=== PATIENT | female | born 1990 | race Caucasian/White ===

== ENCOUNTER 2020-09-20 17:00 | Emergency (ER) | payer OTHER ==
[~2020-09-20] VITALS: Ht 162.6 cm; Wt 80.4 kg
[2020-09-20 17:01] VITALS: BP 137/81
[2020-09-20] MEDS ORDERED: LIDOCAINE 2% MDV 20ML VIAL SC ONE (17:30)
== END 2020-09-20 17:59 | disposition home or self-care (01) ==
LOC: M ED 17:00
DX: S61.411A Laceration without foreign body of right hand, initial encounter (principal); W25.XXXA Contact with sharp glass, initial encounter; Y92.9 Unspecified place or not applicable; Y93.9 Activity, unspecified; Y99.9 Unspecified external cause status

== ENCOUNTER 2021-04-05 09:29 | Outpatient (CLI) | payer OTHER ==
[~2021-04-05] VITALS: Ht 162.6 cm; Wt 91.8 kg
[2021-04-05 09:53] VITALS: BP 153/100
[2021-04-05] MEDS ORDERED: PRENTAB9 PO (10:05)
[2021-04-05 10:13] VITALS: BP 161/90
[2021-04-05 10:24] VITALS: BP 153/85
[2021-04-05 10:36] LABS: HEMOGLOBIN 12.3 g/dl (12.0-15.5); MEAN CORPUSCULAR HEMOGLOBIN 29.6 pg (27.0-33.0); MEAN CORPUSCULAR HGB CONC 34.2 g/dl (32.0-36.5); MEAN CORPUSCULAR VOLUME 86.5 fl (80.0-96.0); PLATELET COUNT, AUTOMATED 191 10^3/uL (150-450); RED BLOOD COUNT 4.16 10^6/uL (4.00-5.40); WHITE BLOOD COUNT 11.8 10^3/uL (4.0-10.0)
[2021-04-05 10:39] VITALS: BP 151/85
[2021-04-05 10:44] LABS: TOTAL PROTEIN,RANDOM URINE 6.9 MG/DL (0.0-12.0)
[2021-04-05 10:55] VITALS: BP 122/84
[2021-04-05 10:59] LABS: ALBUMIN 2.4 GM/DL (3.2-5.2); ALT/SGPT 21 U/L (12-78); BILIRUBIN,TOTAL 0.2 MG/DL (0.2-1.0); BLOOD UREA NITROGEN 4 MG/DL (7-18); CALCIUM LEVEL 8.4 MG/DL (8.5-10.1); CARBON DIOXIDE LEVEL 20 MEQ/L (21-32); CHLORIDE LEVEL 113 MEQ/L (98-107); CREATININE FOR GFR 0.61 MG/DL (0.55-1.30); GLOMERULAR FILTRATION RATE > 60.0 (>60); GLUCOSE, FASTING 79 MG/DL (70-100); SODIUM LEVEL 141 MEQ/L (136-145); TOTAL PROTEIN 5.3 GM/DL (6.4-8.2)
--- NOTE | 2021-04-05 14:38 | IPNPDOC ---
Obstetrical Progress Note Date of Service Apr 05, 2021 Subjective 30yo at 31w6d presents to triage with increased swelling and noted elevated BP on cuff at [facility]. She states she has noticed more swelling in her hands and was concerned so decided to go to [facility] to check her BP. She reports initial read was in the 130's/80's and repeat was 140's/100's. Her has been uncomplicated to date. She reports intermittent headaches that self resolve, and denies headache at this time. Denies vision changes, RUQ pain, N/V or dyspnea. She is also without OB complaint and denies ctx ,LOF, VB or discharge. +GFM Objective Vital Signs Date Time Temp Pulse Resp B/P (MAP) Pulse Ox O2 Delivery O2 Flow Rate FiO2 04/05/21 10:55 50 122/84 (97) 04/05/21 10:39 51 151/85 (107) 04/05/21 10:24 64 153/85 (107) 04/05/21 10:13 58 161/90 (113) 04/05/21 09:53 98.3 65 18 153/100 (117) Laboratory Tests 04/05/21 10:11: Urine Random Creatinine 45.0, Urine Random Total Protein 6.9 04/05/21 10:28: White Blood Count 11.8H, Red Blood Count 4.16, Hemoglobin 12.3, Hematocrit 36.0, Mean Corpuscular Volume 86.5, Mean Corpuscular Hemoglobin 29.6, Mean Corpuscular Hemoglobin Concent 34.2, Red Cell Distribution Width 12.8, Platelet Count 191, Nucleated Red Blood Cells % (auto) 0.0, Sodium Level 141, Potassium Level 4.0, Chloride Level 113H, Carbon Dioxide Level 20L, Anion Gap 8, Blood Urea Nitrogen 4L, Creatinine 0.61, Glomerular Filtration Rate > 60.0, Fasting Glucose 79, Calcium Level 8.4L, Total Bilirubin 0.2, Aspartate Amino Transf (AST/SGOT) 13, Alanine Aminotransferase (ALT/SGPT) 21, Alkaline Phosphatase 86, Total Protein 5.3L, Albumin 2.4L, Albumin/Globulin Ratio 0.8L Assessment Heart Rate (FHR): 140 Variability: Moderate Accelerations: Positive Decelerations: None Tocometer Contractions: No Assessment and Plan Additional Comments BP in triage in the 150's/100's initially, pt somewhat anxious on arrival. Pre E labs obtained and within normal limits, UPC calculated at 0.15. BP improved to 122/84 after patient rested, and she remained asymptomatic. Discussed lab findings and recommend collection of 24hr urine that she may complete at home, with strict return precautions given. Order placed for patient to drop off urine at [place]. All questions answered. Has follow up scheduled for Wednesday for KIRAN care. TONY MORRIS M.D. Apr 05, 2021 12:27
== END 2021-04-05 11:20 | disposition home or self-care (01) ==
LOC: M LDO 09:29
PROVIDERS: ATTEND Obstetrics & Gynecology
DX: O26.893 Other specified pregnancy related conditions, third trimester (principal); R03.0 Elevated blood-pressure reading, without diagnosis of hypertension; Z3A.31 31 weeks gestation of pregnancy
CPT/HCPCS: 36415; 59025; 80053; 82570; 84156; 85027; G0378; G0463

== ENCOUNTER → 2021-04-21 | Outpatient (CLI) | payer OTHER ==
[~2021-04-21] MED LIST: PRENTAB9 PO
--- NOTE | 2021-04-22 08:14 | REP ---
INDICATION: GEST HTN COMPARISON: None. TECHNIQUE: Transabdominal obstetrical ultrasound with color Doppler evaluation. FINDINGS: Examination demonstrates a single live intrauterine in cephalic presentation. motion is identified by technologist. Placenta is noted anterior and grade 1 without evidence for placenta previa or abruption. Amniotic fluid volume is normal. Cervix measures 3.1 cm in length and appears closed.. Selected gestational age: 34 weeks 1 day with JONH 06/01/2021. Gestational age by current measurements 35 weeks 2 days with JONH 05/24/2021. FHR equals 153 beats per minute. BPD: 8.6 cm at 34 weeks 4 days HC: 31.4 cm at 35 weeks 2 days AC: 32.9 cm at 36 weeks 6 days FL: 6.8 cm at 34 weeks 6 days HL: 6.0 cm at 34 weeks 5 days HC/AC: 0.95 Estimated weight 2797 grams (90thpercentile). EVAN: 11.0 cm (8.1-24.8) Umbilical artery SD ratio: 2.16 (1.73-3.67) Limited anatomical assessment demonstrates no obvious abnormality. IMPRESSION: Single live advanced gestation in cephalic presentation. Amniotic fluid volume is within normal limits. Estimated weight upper limits of normal range. <Electronically signed by Robert Armando > 04/22/21 [id number]
== END ==
LOC: M RAD 13:57
PROVIDERS: ATTEND Advanced Practice Midwife
DX: O13.3 Gestational [pregnancy-induced] hypertension without significant proteinuria, third trimester (principal); Z3A.35 35 weeks gestation of pregnancy

== ENCOUNTER → 2021-04-29 | Outpatient (CLI) | payer OTHER ==
[2021-04-29 12:47] LABS: HEMATOCRIT 38.9 % (36.0-47.0); HEMOGLOBIN 13.2 g/dl (12.0-15.5); MEAN CORPUSCULAR HGB CONC 33.9 g/dl (32.0-36.5); MEAN CORPUSCULAR VOLUME 88.4 fl (80.0-96.0); PLATELET COUNT, AUTOMATED 173 10^3/uL (150-450)
[2021-04-29 13:11] LABS: TOTAL PROTEIN,RANDOM URINE 21.1 MG/DL (0.0-12.0)
[2021-04-29 13:12] LABS: ALBUMIN 2.6 GM/DL (3.2-5.2); ALT/SGPT 25 U/L (12-78); BILIRUBIN,DIRECT < 0.1 MG/DL (0.0-0.2); BILIRUBIN,TOTAL 0.3 MG/DL (0.2-1.0); BLOOD UREA NITROGEN 6 MG/DL (7-18); CARBON DIOXIDE LEVEL 23 MEQ/L (21-32); CHLORIDE LEVEL 107 MEQ/L (98-107); GLOMERULAR FILTRATION RATE > 60.0 (>60); GLUCOSE, FASTING 70 MG/DL (70-100); LDH LACTATE DEHYDROGENASE 159 U/L (84-246); POTASSIUM SERUM 4.7 MEQ/L (3.5-5.1); SODIUM LEVEL 138 MEQ/L (136-145); TOTAL PROTEIN 5.7 GM/DL (6.4-8.2); URIC ACID 3.5 MG/DL (2.6-6.0)
== END ==
LOC: M LAB 11:40
PROVIDERS: ATTEND Obstetrics & Gynecology
DX: O13.3 Gestational [pregnancy-induced] hypertension without significant proteinuria, third trimester (principal)

== ENCOUNTER 2021-05-09 13:38 | Inpatient (IN) | payer OTHER ==
[~2021-05-09] VITALS: Ht 162.6 cm; Wt 92.2 kg
[2021-05-09] VITALS (25 sets, daily range): BP systolic 126–183; BP diastolic 67–116
[2021-05-09] MEDS ORDERED: PENICILLIN G POTASSIUM IV 5 MU in D5W MINI-BAG PLUS 100 ML IV STA (13:46)
[2021-05-09] MEDS ORDERED: TRANEXAMIC ACID INJection 1,000 MG in NS 100 ML IV PRN (13:50)
[2021-05-09] MEDS ORDERED: CALCIUM GLUCONATE 1,000 MG in D5W MINI-BAG PLUS 100 ML IV PRN (13:50)
[2021-05-09] MEDS ORDERED: CARBOPROST TROMETHAMINE 250 MCG/ML AMP IM PRN (13:50)
[2021-05-09] MEDS ORDERED: OXYTOCIN DRIP 30 UNITS in IV 1 EA IV PRN ×4 (13:50)
[2021-05-09] MEDS ORDERED: MAG Sulf (L&D) 4 GM/100 ML 4 GM in IV 1 EA IV ONE (13:50)
[2021-05-09] MEDS ORDERED: HOME MED LIST COMPLETE! XX SCH (14:00)
[2021-05-09] MEDS ORDERED: miSOPROStol 50MCG 1/2 TABLET SL ONE (14:25)
--- NOTE | 2021-05-09 14:44 | HPEPDOC ---
Obstetrical History & Physical General Date of Admission May 09, 2021 at 13:38 History of Present Illness Chief Complaint: Patient is a 31yo at 36+5 wks gestation who presents to L&D triage for IOL due to neurological symptoms in setting of [place]. HPI: Reports vision changes going from just spots to fireworks in vision. Feeling head pressure, not necessarily pain. Denies nausea, vomiting, abdominal pain, contractions, LOF, vaginal bleeding. Reports movement, just less than before. D Denies any dysuria, vaginal discharge, vaginal itching/burning. ROS: GEN: Feeling Fine. Denies fevers. Head: Denies facial pain, or sinus pressure. Resp: Denies SOB/LAMBERT, cough, or wheezing. Card: Denies palpitations or Chest pain. GI: Denies nausea, vomiting, diarrhea, constipation. No abdominal pain. MSK: Denies calf pain. Denies low back pain. Lymph: Denies edema to upper or lower extremities bilaterally. Neuro: Denies changes in sensation or motor function. Skin: Denies any skin changes, lesions, lacerations, ecchymosis, pruritus, or rashes. ALLERGIES: No allergic/immunologic symptoms. NKDA- Reviewed Dating Final EDC: Jun 01, 2021 Final EDC by: LMP LMP: Aug 25, 2020 Estimated Date of Confinement: Jun 01, 2021 EGA at Admission: 36.5 Antepartum Course Diagnos(e)s 1.Gestational Hypertension 2. Varicella Non-Immune 3. Overweight, BMI 29.35 Height (inches): 64 Pre- weight (lbs.): 171 Admission Weight (lbs.): 207 Change in Weight (lbs.): 36 Past Medical History Past Obstetrical History : Past Obstetrical History: [employer] History: No pertinent history Past Medical History Medical History Denies Surgical History: Tonsilectomy, [place] teeth Family History Significant Family History: No pertinent family hx Social History Marital Status: Psychosocial History: No pertinent psych hx * Smoker: non-smoker Alcohol: Denies Drugs: denies Abuse Violence Screening Have you been hit/kicked/slapp: No Have you been sexually assault: No Allergies Coded Allergies: No Known Allergies (Unverified , 09/20/20) Medications Scheduled No.137/Iron/Folic Acd ( Vitamin Tablet) 1 Each Tablet, 1 TAB PO DAILY Physical Examination Physical Examination Exam: General: Well-appearing, in no acute distress. Uncomfortable with contractions. PSYCH: Well groomed. Appropriate affect, normal mood. Conversed easily. Neuro: Oriented to time, place, and person. Patellar Deep tendon reflexes 2+. Negative clonus. RESP: Lungs clear to auscultation bilaterally without wheezes, rales or rh onchi. Unlabored breathing. CV: Normal RRR, no murmur, c/w normal . No edema to bilateral upper and lower extremities. Negative calf tenderness. Back: No tenderness on palpation. ABD: Gravid. Soft, non-tender. BS normal x4 quad. Uterus non-tender. MSK: Normal mvmt all extremities. Steady gait. Betsy from a seated position without assistance. SKIN: Dry, intact. Genitalia: External Genitalia showed no abnormalities, without lesions; normal vulva with NO vulvar atrophy, hypertrophy, stricture, adhesions, ulcers, lesions, masses. No vaginal discharge was observed. No unusual odors. Perianal area intact without lesions or visible hemorrhoids. No skin tag noted. Obstetrical: Clinical Pelvimetry: Pelvis adequate, untested. FHR: 145 rate, moderate variability, accelerations present, no decelerations. Contractions absent, but uterine irritability noted. VTX by Rosemarie EFW: 2800gm by Rosemarie SVE: FT/thick/high, posterior/firm Associate Professor Of Forestry present for exam: Ms. RiveraRenetta&D Rn Vital Signs/I&O 13:56: 157/91, P74 14:32: 139/91, P68 Laboratory Data 24H LABS Laboratory Tests 2 05/09/21 13:52: Serology Scanned Report Hepatitis B Testing Urine Culture: No Growth Pertinent Laboratoy Data Blood Type: O+ RBC Antibody Screen: Negative HIV: Negative Hepatitis B: Negative Rapid Plasma Reagin: Nonreactive Rubella: Immune Varicella: Nonreactive Chlamydia/Gonorrhea: Negative Group B Streptococcus: Negative Quad Screen Test: Declined Cystic Fibrosis: Negative Glucose Tolerance Test: 161 (with normal 3hr GTT) Anatomy Ultrasound Ultrasound Date: Jan 08, 2021 Placenta Location: Anterior Normal Anatomy: Yes (with limited views) Other Ultrasounds 03/12/21 f/u: EGA 283. EFW 1362gm (68%). Normal anatomy. Assessment/Plan Assessment 31yo at 36+5 wks gestation presents to L&D for IOL after being evaluated in clinic and found to have vision changes in setting of GHTN. Due to symptoms, now with pre-e with severe features. O positive/RI Varicella Non-immune GBS unknown Mild range BP Benign physical exam FHR Cat 1 tracing VTX by Rosemarie EFW: 2800gm [place] SVE: FT/thick/high, post/firm Plan Admit, labs, IV including pre-e labs, consent completed Address pain needs as the arise Continuous EFM, NPO Start mag for seizure prophylaxis, 4gm bolus followed by 2gm per hour. Dr. Seth previously consulted regarding patient. GBS positive: start prophylaxis when in active labor due to GBS unknown, status. Plan to start IOL process with cytotec buccal 50mcg now. Discussed aguilar bulb placement when able. Anticipate Labor and Delivery Counseling Reviewed with patient the following with the patient in regards to vaginal delivery (Deliver through the vaginal canal): The purpose of the procedure is to deliver a baby. There may be maternal risks involved with vaginal delivery to include but not limited to: -Use of the medications to induce or augment labor with the risks of uterine rupture, infection, heart rate abnormalities, hemorrhage, and/or need for emergency delivery. -Artificial rupture of the amniotic sac with the risk of cord prolapse -Internal monitors with the associate risks of infection or fever -Infection, which is fever during the labor process -IV pain management, anesthesia as indicated and associated risks with those med ications -Vaginal lacerations and repair, episiotomy and repair when needed -Injury to the baby or mother at the time of delivery, -Maternal organ damage, maternal or infant -Prolonged hospitalized -Possible painful intercourse, chronic pelvic pain In addition to these maternal risks, there may be other possible risks involved in this procedure including, but not limited to: bleeding with the possible need for blood transfusion. Risks of blood transfusion can include but are not limited to: possible transfusion reaction, virus transmission. Patient consents to blood transfusion if necessary. The likelihood of a successful outcome for this procedure is: Good Reviewed with patient the generally recognized and accepted practical alternatives to this procedure and the accompanying risks are: -Possible emergent Section with its risk of damage to internal organs and necessary repairs, laceration to the baby and necessary repairs -Possible operative vaginal delivery to include forceps or vacuum assist, resulting in: maternal tissue damage, maternal urinary or bowel incontinence, baby bruising, hematoma, scalp swelling, scalp laceration, skull fracture, facial paralysis and its repair Reviewed with patient the practice of medicine is not an exact science and that no guarantees can be made to the patient concerning the results of this procedure, nor guarantees to the effect this procedure will have on underlying medical issues. Reviewed with patient that during the course of labor, it may be necessary or appropriate to perform additional procedure(s) which were unforeseen or not known to be needed at the time of admission. Ms. Lawton appears to understand these risks and elects to proceed with induction of labor today. KEISHA LERMA CNM May 09, 2021 14:07
[2021-05-09] MEDS: LR 1,000 ML IV SCH (14:55)
[2021-05-09] MEDS: MAG Sulf (OBGYN) 20GM/500ML 20,000 MG in IV 1 EA IV SCH ×2 (15:02→23:27)
[2021-05-09 15:03] LABS: HEMATOCRIT 36.5 % (36.0-47.0); HEMOGLOBIN 12.7 g/dl (12.0-15.5); MEAN CORPUSCULAR HGB CONC 34.8 g/dl (32.0-36.5); MEAN CORPUSCULAR VOLUME 86.1 fl (80.0-96.0); PLATELET COUNT, AUTOMATED 172 10^3/uL (150-450); RED BLOOD COUNT 4.24 10^6/uL (4.00-5.40); WHITE BLOOD COUNT 12.1 10^3/uL (4.0-10.0)
[2021-05-09 15:25] LABS: ALT/SGPT 24 U/L (12-78); BILIRUBIN,TOTAL 0.3 MG/DL (0.2-1.0); CREATININE FOR GFR 0.85 MG/DL (0.55-1.30); GLOMERULAR FILTRATION RATE > 60.0 (>60); LDH LACTATE DEHYDROGENASE 168 U/L (84-246); URIC ACID 3.9 MG/DL (2.6-6.0)
[2021-05-09 15:49] LABS: CREATININE,RANDOM URINE < 13.0 MG/DL; TOTAL PROTEIN,RANDOM URINE 7.9 MG/DL (0.0-12.0)
[2021-05-09] MEDS ORDERED: miSOPROStol 25MCG 1/4 TABLET PO SCH (19:15)
[2021-05-09] MEDS ORDERED: **PENDING PCN ENTRY XX SCH (21:00)
[2021-05-09] MEDS ORDERED: ACETAMINOPHEN 500 MG TAB PO ONE (22:00)
--- NOTE | 2021-05-09 23:12 | IPNPDOC ---
Obstetrical Progress Note Date of Service May 09, 2021 Subjective to room for assessment. patient's vision changes symptoms are better and headache is also better. she has received 2 doses of cytotec 50mcg, then 25mcg FHT: 140, MOD JMI,+ACCELS, -Decels---cat I tracing SVE: //H. cook cathater placed with 80/[address] toco: 2-310 A/P Latent labor. cat I tracing. normal BP AND no s/s of worsenng pre e or mag toxicity. can redose cytotec at this time. anticipate Objective Vital Signs Date Time Temp Pulse Resp B/P (MAP) Pulse Ox O2 Delivery O2 Flow Rate FiO2 05/09/21 21:43 97.7 94 18 134/74 (94) ELLA MORALES MD May 09, 2021 23:12
[2021-05-10] VITALS (88 sets, daily range): BP systolic 95–179; BP diastolic 50–108
[2021-05-10] MEDS ORDERED: BUTORPHANOL 2 MG/ML INJ (J0595) IV ONE (00:35)
[2021-05-10] MEDS ORDERED: miSOPROStol 25MCG 1/4 TABLET PO ONE ×2 (02:25→07:10)
[2021-05-10] MEDS: LR 1,000 ML IV SCH ×2 (04:21→09:45)
[2021-05-10 07:45] LABS: ALBUMIN 2.5 GM/DL (3.2-5.2); ALT/SGPT 22 U/L (12-78); BILIRUBIN,TOTAL 0.3 MG/DL (0.2-1.0); BLOOD UREA NITROGEN 7 MG/DL (7-18); CALCIUM LEVEL 7.3 MG/DL (8.5-10.1); CARBON DIOXIDE LEVEL 21 MEQ/L (21-32); CHLORIDE LEVEL 104 MEQ/L (98-107); CREATININE FOR GFR 0.65 MG/DL (0.55-1.30); GLOMERULAR FILTRATION RATE > 60.0 (>60); GLUCOSE, FASTING 87 MG/DL (70-100); SODIUM LEVEL 135 MEQ/L (136-145); TOTAL PROTEIN 5.9 GM/DL (6.4-8.2)
[2021-05-10] MEDS: MAG Sulf (OBGYN) 20GM/500ML 20,000 MG in IV 1 EA IV SCH ×2 (09:41→19:35)
--- NOTE | 2021-05-10 10:22 | IPNPDOC ---
Obstetrical Progress Note Date of Service May 10, 2021 Subjective Patient uncomfortable when contractions do occur. Pt reports still some intermittent headache, had tylenol last night that helped with pain. Vision changes have improved. Wanting something to eat, hasn't eaten since yesterday. Spouse at BS for support. Objective Vital Signs Date Time Temp Pulse Resp B/P (MAP) Pulse Ox O2 Delivery O2 Flow Rate FiO2 05/10/21 10:01 05/10/21 09:05 88 96 18 140/62 134/78 (96) Room Air 05/10/21 07:52 98.0 Item Value Date Time Creatinine 0.65 MG/DL 05/10/21 0708 Glomerular Filtration Rate > 60.0 05/10/21 0708 Blood Urea Nitrogen 7 MG/DL 05/10/21 0708 Aspartate Amino Transf (AST/SGOT) 14 U/L 05/10/21 0708 Alanine Aminotransferase (ALT/SGPT) 22 U/L 05/10/21 0708 Sodium Level 135 MEQ/L L 05/10/21 0708 Potassium Level 4.0 MEQ/L 05/10/21 0708 Chloride Level 104 MEQ/L 05/10/21 0708 Carbon Dioxide Level 21 MEQ/L 05/10/21 0708 Anion Gap 10 MEQ/L 05/10/21 0708 Assessment Heart Rate (FHR): 135 Variability: Moderate Accelerations: Positive Decelerations: None Heart Rate Tracing: Category I Tocometer Contractions: Yes Frequency: every 3-7 min. Assessment and Plan Additional Comments 31yo at 36+6 wks gestation: admitted yesterday for IOL for Pre-E with severe features (based on neurological symptoms). O positive/RI Varicella Non-immune- plan vaccine PP GBS unknown- plan to start when in active labor Continues to have Mild range BP. Did have severe range early this am, but resolved spontaneously. Continue on Mag sulfate 2gm/hr for seizure prophylaxis. Pt reports still some intermittent headache, declines tylenol at this time. Vision changes have improved. Lungs CTA bilaterally. FHR Cat 1 tracing Admission labs normal. CMP today normal (did have some decreased urine output this am at 0400). May have clear liquid diet for breakfast and lunch. IOL was started with cytotec. Has received 60-62-91-25mcg with last dose at 0751. Double lumen aguilar bulb was placed at 2302 last night wtih 80/80. External balloon was decreased to 40ml after decreased urine output at 0400 this am. Improved urine output since deflation. Aguilar balloon remains in place. Plan to continue cytotec until aguilar out, then start pitocin. May have IV analgesia for pain if desired and tylenol for headache. Continuous EFM, NPO Anticipate KEISHA LERMA CNM May 10, 2021 10:22
[2021-05-10] MEDS ORDERED: miSOPROStol 50MCG 1/2 TABLET SL ONE (12:05)
[2021-05-10] MEDS ORDERED: LABETALOL 100MG/20ML VIAL As Ordered ONE (13:33)
[2021-05-10] MEDS: LABETALOL 100MG/20ML VIAL IV SCH ×2 (13:54→14:27)
--- NOTE | 2021-05-10 14:26 | IPNPDOC ---
Obstetrical Progress Note Date of Service May 10, 2021 Subjective Feeling some chest pressure, some shortness of breath. Has headache. States aguilar cath is very uncomfortable. Spouse at bedside. Objective Vital Signs Date Time Temp Pulse Resp B/P (MAP) Pulse Ox O2 Delivery O2 Flow Rate FiO2 05/10/21 13:39 05/10/21 13:29 05/10/21 13:17 98 98 96 141/95 *179/97 *164/105 05/10/21 13:00 05/10/21 12:16 100 113 18 153/95 147/99 05/10/21 11:30 98.4 91 18 139/80 Room Air Assessment Heart Rate (FHR): 135 Variability: Moderate Accelerations: Positive Decelerations: None Heart Rate Tracing: Category I Tocometer Frequency: every 3-7 min. Assessment and Plan Additional Comments 31yo at 36+6 wks gestation: admitted yesterday for IOL for Pre-E with severe features (based on neurological symptoms). O positive/RI Varicella Non-immune- plan vaccine PP GBS unknown- plan to start now FHR Cat 1 tracing Admission LFT normal with P:C 0.6. Early CMP normal. Had severe range BP x2. Labetalol IV 20mg given at 1338 with repeat BP back to mild elevations of BP. At time of writing this note, 2 additional severe range blood pressures noted. Additional labetalol IV40mg IV ordered. Continue on Mag sulfate 2gm/hr for seizure prophylaxis. Plan mag level now due to difficulty breathing. No clonus and 2+ patellar reflexes. Lungs are CTA bilaterally. May have epidural if desired. CBC now so anesthesia to view platelet level. IV tylenol now for GARCÍA. IOL was started with cytotec. Has received 69-20-05-25-50mcg with last dose at 1220. Double lumen aguilar bulb was placed at 2302 last night with 80/80. External balloon was decreased to 40ml after decreased urine output at 0400 this am. Improved urine output since deflation. Aguilar balloon removed with gentle tug at 1405. Plan to start pitocin 4hrs a fter last dose of cytotec. SVE: 5-6/75/-3 with bulging bag. Aguilar balloon was likely preventing head decent. AROM when able. Back to NPO diet. Continuous EFM, NPO Anticipate KEISHA LERMA CNM May 10, 2021 14:20
[2021-05-10] MEDS ORDERED: PENICILLIN G POTASSIUM IV 5 MU in D5W MINI-BAG PLUS 100 ML IV STA (14:34)
[2021-05-10] MEDS ORDERED: ACETAMINOPHEN *IV* 1,000 MG in IV 1 EA IV ONE (15:00)
[2021-05-10 15:05] LABS: HEMATOCRIT 34.6 % (36.0-47.0); HEMOGLOBIN 12.1 g/dl (12.0-15.5); MEAN CORPUSCULAR VOLUME 85.6 fl (80.0-96.0); PLATELET COUNT, AUTOMATED 190 10^3/uL (150-450); RED BLOOD COUNT 4.04 10^6/uL (4.00-5.40); WHITE BLOOD COUNT 14.4 10^3/uL (4.0-10.0)
[2021-05-10] MEDS ORDERED: OXYTOCIN DRIP 30 UNITS in IV 1 EA IV SCH (16:00)
[2021-05-10] MEDS: PENICILLIN G POTASSIUM IV 2.5 MU in IV 1 EA IV SCH ×2 (19:07→23:11)
--- NOTE | 2021-05-10 19:23 | IPNPDOC ---
Obstetrical Progress Note Date of Service May 10, 2021 Subjective Feeling much improved. Headache gone. Spouse at bedside. Objective Vital Signs Date Time Temp Pulse Resp B/P (MAP) Pulse Ox O2 Delivery O2 Flow Rate FiO2 05/10/21 19:00 82 121/64 (83) Room Air 05/10/21 18:44 18 05/10/21 16:14 98.5 05/10/21 15:59 95 Assessment Heart Rate (FHR): 135 Variability: Moderate Accelerations: Positive Decelerations: None Heart Rate Tracing: Category I Tocometer Contractions: Yes Frequency: every 2-5 min. Assessment and Plan Additional Comments 31yo at 36+6 wks gestation: admitted yesterday for IOL for Pre-E with severe features (based on neurological symptoms). O positive/RI Varicella Non-immune- plan vaccine PP GBS unknown- Just started 2nd dose of PCN, continue until delivery. FHR Cat 1 tracing Admission LFT normal with P:C 0.6. Early CMP normal. Repeat CBC this afternoon (For anesthesia prior to epidural placement) was normal. Mag level is therapeutic. Had severe range BP x4 earlier this afternoon. Received total 60mg IV labetalol, last received at 1427. Normotensive since that time. Continue on Mag sulfate 2gm/hr for seizure prophylaxis. Normal urine output today. May have epidural if desired. IOL was started with cytotec. Has received 22-38-13-25-50mcg with last dose at 1220. Double lumen aguilar bulb out at 1405. Pitocin was started at 1620 and currently at 8mu/min. SVE: 5-6/75/-2. same dilation as last check with some decent. AROM at 1913 with minimal clear fluid. Continue induction with pitocin titration per protocol. NPO diet. Continuous EFM, NPO Anticipate KEISHA LERMA CNM May 10, 2021 19:22
[2021-05-10] MEDS ORDERED: FENTANYL 2MCG/ML ROPIVACAINE 0.2% IN 0.9% NACL 100ML IVBAG As Ordered ONE (20:39)
[2021-05-10] MEDS ORDERED: NALOXONE INJ 0.4MG/1ML VIAL (J2310 PER 1MG) IV PRN (21:04)
[2021-05-10] MEDS ORDERED: ePHEDrine SULFATE 25 MG/5 ML(5MG/ML) SYRINGE IV PRN (21:04)
[2021-05-10] MEDS ORDERED: REFRIGERATOR IV KEYS XX PRN (21:04)
[2021-05-10] MEDS ORDERED: EPIDURAL/PCA KEYS XX PRN (21:04)
[2021-05-10] MEDS ORDERED: ONDANSETRON 4MG/2ML VIAL IV PRN (21:04)
[2021-05-10] MEDS ORDERED: FENTANYL/ROPIVACAINE/NACL BAG 100 ML EPIDURAL SCH (21:04)
[2021-05-10] MEDS ORDERED: LACTATED RINGER'S 1000 ML IV PRN (21:04)
[2021-05-10] MEDS ORDERED: EPIDURAL COMMENT XX SCH (21:04)
[2021-05-10] MEDS ORDERED: diphenhydrAMINE 50MG/ML VIAL (J1200) IV PRN (21:04)
[2021-05-10] MEDS ORDERED: ePHEDrine SULFATE 25 MG/5 ML(5MG/ML) SYRINGE As Ordered ONE (21:34)
--- NOTE | 2021-05-10 22:11 | IPNPDOC ---
Obstetrical Progress Note Date of Service May 10, 2021 Subjective Now comfortable with Epidural. Objective Vital Signs Date Time Temp Pulse Resp B/P (MAP) Pulse Ox O2 Delivery O2 Flow Rate FiO2 05/10/21 21:56 05/10/21 21:42 94 87 125/74 (91) 130/75 05/10/21 19:16 98.0 05/10/21 19:00 Room Air 05/10/21 18:44 18 05/10/21 15:59 95 Assessment Heart Rate (FHR): 155 Variability: Minimal Accelerations: None Decelerations: Early, Late, Variable Heart Rate Tracing: Category II Tocometer Contractions: Yes Frequency: every 2-5 min. Assessment and Plan Additional Comments 31yo at 36+6 wks gestation: admitted yesterday for IOL for Pre-E with severe features (based on neurological symptoms). O positive/RI Varicella Non-immune- plan vaccine PP GBS unknown- Completed 2 doses PCN, continue until delivery. FHR Cat 2 tracing: Late decelerations noted after epidural placement. Resolved after position changes, ephedrine doses (due to drop in BP), and decreasing pitocin in half to 7mu/min. FHR now with min-mod variability, no acceleration and very subtle early decelerations noted. Had severe range BP x4 earlier this afternoon. Received total 60mg IV labetalol, last received at 1427. Stable BP at this time. No headache since receiving ofrimev this afternoon. Continue on Mag sulfate 2gm/hr for seizure prophylaxis. Normal urine output today. Admission LFT normal with P:C 0.6. Early CMP normal. Repeat CBC this afternoon (For anesthesia prior to epidural placement) was normal. Mag level is therapeutic. IOL was started with cytotec. Received 44-76-78-25-50mcg with last dose at 1220. Double lumen aguilar bulb out at 1405. Pitocin was started at 1620 and currently at 7mu/min (recently decreased due to FHR). AROM was at 1913 with minimal clear fluid. Continue induction with pitocin titration per protocol. NPO diet. Continuous EFM, NPO Anticipate KEISHA LERMA CNM May 10, 2021 22:10
--- NOTE | 2021-05-10 23:38 | IPNPDOC ---
Obstetrical Progress Note Date of Service May 10, 2021 Subjective Sleeping, comfortable with BATOOL. No headache. Spouse at bedside. Denies any issues with breathing. Objective Vital Signs Date Time Temp Pulse Resp B/P (MAP) Pulse Ox O2 Delivery O2 Flow Rate FiO2 05/10/21 23:26 05/10/21 21:56 93 94 118/56 125/74 (91) 05/10/21 21:30 97.8 05/10/21 19:00 Room Air 05/10/21 18:44 18 05/10/21 15:59 95 Assessment Heart Rate (FHR): 150 Variability: Moderate Accelerations: Positive (with scalp stim during SVE) Decelerations: Early Heart Rate Tracing: Category I Tocometer Frequency: every 2-5 min. Strength: palpated as mild Assessment and Plan Additional Comments 31yo at 36+6 wks gestation: admitted yesterday for IOL for Pre-E with severe features (based on neurological symptoms). O positive/RI Varicella Non-immune- plan vaccine PP GBS unknown- Completed 2 doses PCN, continue until delivery. FHR Cat 1tracing: late decels have resolved. Now with early decelerations. Positive acceleration with scalp stimulation. Had severe range BP x4 earlier this afternoon. Received total 60mg IV labetalol, last received at 1427. Stable BP at this time. No headache since receiving ofrimev this afternoon. Continue on Mag sulfate 2gm/hr for seizure prophylaxis. Normal urine output today. Admission LFT normal with P:C 0.6. Early CMP normal. Repeat CBC this afternoon (For anesthesia prior to epidural placement) was normal. Mag level was therapeutic this afternoon. IOL was started with cytotec. Received 22-11-10-25-50mcg with last dose at 1220. Double lumen aguilar bulb out at 1405. Pitocin was started at 1620 and currently at 7mu/min (recently decreased due to FHR). AROM was at 1913 with minimal clear fluid. SVE now solid 6cm, 90%, -2. 0.5cm caput noted. MICHAEL based on exam. Continue induction with pitocin titration per protocol. NPO diet. Continuous EFM, NPO Anticipate KEISHA LERMA CNM May 10, 2021 23:38
[2021-05-11] VITALS (39 sets, daily range): BP systolic 118–207; BP diastolic 58–106
[2021-05-11] MEDS ORDERED: IBUPROFEN 600MG TAB PO PRN (02:55)
[2021-05-11] MEDS ORDERED: ACETAMINOPHEN TAB 650MG DOSE (2X325MG) PO PRN (02:55)
[2021-05-11] MEDS ORDERED: DIBUCAINE 1% OINTMENT 30GM TOP PRN (02:55)
--- NOTE | 2021-05-11 03:32 | DNPDOC ---
[facility] Delivery Note Delivery Note Date of Delivery: 05/11/2021 @ 0223 hours Pre-Procedure Diagnosis: 1. 31 year old delivery at 37+0 weeks gestation 2. Rh positive 3. Pre-Eclampsia with severe features 4. Varicella Non-Immune 5. Overweight, BMI 29.35 with excessive Wt gain 6. Induction at 36+5wks gestation 7. Magnesium sulfate infusion for seizure prophylaxis 8. PCN antibiotics for unknown GBS in pre-term gestation Post-Procedure Diagnosis: 1. Normal spontaneous vaginal delivery, term up to 40 weeks gestation 2. First degree laceration Procedure: Spontaneous vaginal delivery Delivery Provider: MAJ Samantha Gray CNM Anesthesia: epidural Estimated Blood Loss: 400 ml Findings: Delivered viable male weighing 2850gm (6#5oz), Score 9/9. Complications: None Delivery Summary: Patient is a 31 year old 1 now para 1 who was admitted to labor and delivery for IOL due to pre-eclampsia with severe features at 36+5wks. After a day and half of induction, at 37+0wks, she progressed to C/C/+3 on pitocin. Reassuring FHR tracing throughout pushing. Good directed pushing efforts delivered infant OA, with head restituting to LOT. Right anterior shoulder, posterior shoulder, and corpus delivered easily with maternal pushing efforts. to maternal abdomen for drying, stimulation and assessment by nursing staff. Cord clamped x2 and cut by FOB following cessation of pulse. Cord blood obtained for typing due to maternal blood type. Placenta delivered with gentle cord traction, in Arjun mechanism, appears complete and intact with 3VC. Battledore placenta with hypercoiled cord. Brisk bleeding noted and fundus required massage. Firmed up with pitocin bolus and massage. Due to mag sulfate infusion, continued trickling with bouts of uterine atony. 1000mg TXA given IV and 1000mcg cytotec given ME to assist with uterine tone. Inspection revealed first degree laceration. This was repaired in the usual fashion using 3-0 vicryl with good approximation and hemostasis under exiting epidural anesthesia. Patient tolerated well. Digital rectal exam post repair normal. Sponge, needle, instrument count correct following delivery. Vaginal sweep confirmed nothing foreign remaining in vagina. Patient and stable and bonding in skin to skin when I left. Desires to breast feed and use progesterone only pills for control. Plan to continue Magnesium sulfate infusion for 24hrs post delivery. I delivered the infant, completed the repair, and completed the documentation personally. -ALICE Dhillon ADINA M. CNM May 11, 2021 03:31
[2021-05-11] MEDS: ACETAMINOPHEN 500 MG TAB PO PRN ×2 (03:52→12:46)
[2021-05-11] MEDS: MAG Sulf (OBGYN) 20GM/500ML 20,000 MG in IV 1 EA IV SCH ×2 (05:38→15:41)
[2021-05-11] MEDS: IBUPROFEN 800 MG TAB PO PRN ×2 (07:39→15:51)
--- NOTE | 2021-05-11 09:52 | IPNPDOC ---
Text Note Date of Service The patient was seen on 05/11/21. NOTE Penelope Lawton is a 31yo [id number] s/p vaginal delivery after induction of labor for preeclampsia with severe features; the severe features being visual symptoms (flashes of light/colors) and severe range blood pressures. Has been on magnesium 2g/hr since delivery. VS: blood pressures in the low mild ranges today 130s/70s. Seen in her room today she complains of crossed eyes. Denies headaches or other vision changes, shortness of breath or right upper quadrant pain. On exam she is alert and oriented, currently and answering questions appropriately. Her abdomen is soft, nontender with U-1. Her reflexes are +2 bilateral lower extremities. Her urine output has been adequate and output appears to be increasing. PPD#1 with no evidence of magnesium toxicity. Blurred vision can be caused by the magnesium therapy. Will continue to monitor at this time for signs and symptoms of preeclampsia/magnesium toxicity. VS,Fishbone, I+O VS, Fishbone, I+O Laboratory Tests 05/10/21 14:51 Vital Signs Date Time Temp Pulse Resp B/P (MAP) Pulse Ox O2 Delivery O2 Flow Rate FiO2 05/11/21 08:53 83 18 135/75 (95) 05/11/21 07:53 98.2 05/10/21 19:00 Room Air 05/10/21 15:59 95 I&O- Last 24 Hours up to 6 AM 05/11/21 06:00 Intake Total 3604.0 ml Output Total 3300 ml Balance 304.0 ml SHARDA MULLEN DO May 11, 2021 09:52
[2021-05-11] MEDS: PRENATAL VITAMINS CHEWABLE TABLET PO SCH (13:39)
--- NOTE | 2021-05-11 13:46 | IPNPDOC ---
Text Note Date of Service The patient was seen on 05/11/21. NOTE Penelope Lawton is continuing on her magnesium therapy. Her blood pressures have been mild range, with one nonsustained severe range pressure recorded while . She had reported a headache that was relieved with tylenol. She continues to have double/blurry vision. Denies headaches, difficulty breathing, abdominal pain. a&o x3, approriate affect nonlabored breathing abd soft, nontender, nondistended bilateral patellar reflexes 2+ urine output adequate, now over 1ml/kg/hr for the last 8 hours no signs/symptoms of preeclampsia or magnesium toxicity continue magnesium until 24 hours continue to monitor VS,Fishbone, I+O VS, Fishbone, I+O Laboratory Tests 05/10/21 14:51 Vital Signs Date Time Temp Pulse Resp B/P (MAP) Pulse Ox O2 Delivery O2 Flow Rate FiO2 05/11/21 12:53 81 18 148/84 (105) 05/11/21 11:36 98.0 05/10/21 19:00 Room Air 05/10/21 15:59 95 I&O- Last 24 Hours up to 6 AM 05/11/21 06:00 Intake Total 3604.0 ml Output Total 3300 ml Balance 304.0 ml SHARDA MULLEN DO May 11, 2021 13:46
[2021-05-11 14:15] LABS: ALT/SGPT 18 U/L (12-78); BILIRUBIN,TOTAL 0.4 MG/DL (0.2-1.0); CREATININE FOR GFR 0.79 MG/DL (0.55-1.30); GLOMERULAR FILTRATION RATE > 60.0 (>60); LDH LACTATE DEHYDROGENASE 240 U/L (84-246)
[2021-05-11] MEDS: LR 1,000 ML IV SCH (15:42)
[2021-05-11] MEDS: DOCUSATE SODIUM 100MG CAPSULE PO PRN (15:51)
--- NOTE | 2021-05-11 18:34 | IPNPDOC ---
Text Note Date of Service The patient was seen on 05/11/21. NOTE Penelope Lawton is continuing on her magnesium therapy. Her blood pressures have been mild range since last note. Denies headache. She continues to have double/blurry vision, but feels that it is improving. Denies headaches, difficulty breathing, abdominal pain. a&o x3, appropriate affect nonlabored breathing bilateral patellar reflexes 2+ copious urine output this afternoon/evening no signs/symptoms of preeclampsia or magnesium toxicity continue magnesium until 24 hours continue to monitor VS,Fishbone, I+O VS, Fishbone, I+O Laboratory Tests 05/11/21 13:28 Vital Signs Date Time Temp Pulse Resp B/P (MAP) Pulse Ox O2 Delivery O2 Flow Rate FiO2 05/11/21 17:53 99 18 141/92 (108) 05/11/21 15:53 98.2 05/10/21 19:00 Room Air 05/10/21 15:59 95 I&O- Last 24 Hours up to 6 AM 05/11/21 06:00 Intake Total 3604.0 ml Output Total 3300 ml Balance 304.0 ml SHARDA MULLEN DO May 11, 2021 18:34
[2021-05-12] VITALS (10 sets, daily range): BP systolic 115–169; BP diastolic 59–113
[2021-05-12] MEDS: MAG Sulf (OBGYN) 20GM/500ML 20,000 MG in IV 1 EA IV SCH (00:49)
[2021-05-12] MEDS: IBUPROFEN 800 MG TAB PO PRN (00:49)
[2021-05-12] MEDS ORDERED: LABETALOL 100MG/20ML VIAL IV STA (02:58)
--- NOTE | 2021-05-12 03:57 | IPNPDOC ---
Progress Note Date of Service: May 12, 2021 Progress Note SUBJECT: Penelope Lawton is a 31-year-old 1 now Para 1001 status post uncomplicated spontaneous vaginal delivery at 37+0 weeks' at approximately 0223 hours on [id number] after induction of labor for preeclampsia with severe features (neuro features and severe range blood pressures. Doing well day # 1. She has received 24 hours of magnesium prophylaxis. She has just started ambulating, working on due to void. Breast feeding without issue. Report s lochia is decreasing. She had a sustained severe range pressure to the 160s around 0300, was given 20mg IV labetalol with resolution to 140s/80s. I discussed that if she remains in the high 150s to low 160s I would consider starting an oral medication for blood pressure control which would continue for several weeks . She reports her eyes feel better post-magnesium and double/blurry vision is decreasing. Denies headaches, shortness of breath, right upper quadrant pain. OBJECTIVE: VITAL SIGNS: Within normal limits, afebrile. Alert and oriented times three. Nonlabored breathing. Heart rate: Regular rate. Patient currently walking supported by nursing in room. ASSESSMENT: As above doing well on day 1, now s/p magnesium. Vitals within normal limits (mild range BPs) , afebrile, hemodynamically stable with no evidence of infection. Transferring to mother-baby unit now. PLAN: - continue to monitor for signs/symptoms of preeclampsia - consider oral antihypertensives if high mid-range pressures consistently - Discharge to home likely 72 hours after delivery - Tylenol and Motrin for pain. - Encourage breast feeding and ambulation. - undecided for control - Blood pressure check at one week and Routine PP visit in 6 weeks in clinic. - Discussed return precautions at length. VS, I&O, 24H, Fishbone Vital Signs/I&O Vital Signs Date Time Temp Pulse Resp B/P (MAP) Pulse Ox O2 Delivery O2 Flow Rate FiO2 05/12/21 02:53 72 166/94 (118) 05/11/21 18:53 98.0 18 05/10/21 19:00 Room Air 05/10/21 15:59 95 I&O- Last 24 Hours up to 6 AM 05/12/21 06:00 Intake Total 3756.7 ml Output Total 6875 ml Balance -3118.3 ml Laboratory Data 24H LABS Laboratory Tests 2 05/11/21 13:28: Glomerular Filtration Rate > 60.0, Uric Acid 4.0, Total Bilirubin 0.4, Aspartate Amino Transf (AST/SGOT) 18, Alanine Aminotransferase (ALT/SGPT) 18, Lactate Dehydrogenase 240 CBC/BMP Laboratory Tests 05/11/21 13:28 SHARDA MULLEN DO May 12, 2021 03:57
[2021-05-12] MEDS: PRENATAL VITAMINS CHEWABLE TABLET PO SCH (09:52)
--- NOTE | 2021-05-12 15:04 | IPNPDOC ---
Progress Note Date of Service: May 12, 2021 Day#: 1 Progress Note SUBJECT: 31 yo s/p at 37w0d after IOL for pre-eclampsia with severe features reports that she has been having increased anxiety and has not had much sleep due to increased anxiety. During the discussion, she became tearful and reports that she has a long standing history of anxiety and has not ever taken medication for treatment. We discussed treatment options with vistaril vs buspar vs zoloft or that she can trial benadryl for sleep. We also discussed enrolling in and discussed scheduling an appointment with once she has been discharged. After our discussion, she desires to trial benadryl for sleep and will think about other options that were discussed with her. She will plan to inform provider prior to discharge if she changes her mind and desires for prescription for anxiety. Recommended that she f/u in the clinic in 2 weeks for f/u on anxiety. She verbalized understanding of all information and instructions and is without any further questions at this time. VS, I&O, 24H, Fishbone Vital Signs/I&O Vital Signs Date Time Temp Pulse Resp B/P (MAP) Pulse Ox O2 Delivery O2 Flow Rate FiO2 05/12/21 14:15 98.9 63 18 137/65 (89) 05/10/21 19:00 Room Air 05/10/21 15:59 95 I&O- Last 24 Hours up to 6 AM 05/12/21 06:00 Intake Total 4256.7 ml Output Total 9175 ml Balance -4918.3 ml JOSÉ MIGUEL CARSON CNM May 12, 2021 15:04
[2021-05-12] MEDS ORDERED: diphenhydrAMINE 50MG/ML VIAL (J1200) IV PRN (15:05)
[2021-05-12] MEDS ORDERED: hydrOXYzine 50 MG TAB PO PRN (15:10)
[2021-05-12] MEDS ORDERED: diphenhydrAMINE 50MG CAP PO PRN (15:10)
[2021-05-12 15:16] LABS: HEMATOCRIT 33.8 % (36.0-47.0); MEAN CORPUSCULAR HEMOGLOBIN 29.7 pg (27.0-33.0); MEAN CORPUSCULAR HGB CONC 32.5 g/dl (32.0-36.5); MEAN CORPUSCULAR VOLUME 91.4 fl (80.0-96.0); PLATELET COUNT, AUTOMATED 195 10^3/uL (150-450); WHITE BLOOD COUNT 10.8 10^3/uL (4.0-10.0)
[2021-05-13 03:00] VITALS: BP 123/61
[2021-05-13 06:00] VITALS: BP 125/61
--- NOTE | 2021-05-13 06:32 | IPNPDOC ---
Progress Note Date of Service: May 13, 2021 Day#: 2 Progress Note SUBJECT: Ms. Lawton is a 31yo PPD2 s/p c/b pre-eclampsia with severe features s/p 24h magnesium. She has been ambulating, voiding spontaneously without issue and tolerating regular diet. Breast feeding without issue. Reports lochia is less than a normal period. Patient is ambulating well. Reports some cramping with . Denies any pain. Voiding and passing flatus without difficulty. She denied n/v/d, cp, sob, reed, visual changes, abd pain, f/c, heavy vb, dc, urinary sx. APC 1. varicella non-immune 2. pre-eclampsia with severe features, normal tox labs OBJECTIVE: VITAL SIGNS: Within normal limits, afebrile. Alert and oriented times three. No increased WOB Heart rate: non-tachy Abdomen: Fundus firm at U-2. Soft, NTTP. LE DTRs 2+, no clonus, neg homans [Minimal] lochia per patient ASSESSMENT: Ms. Lawton is a 31yo PPD2 s/p c/b pre-eclampsia with severe features s/p 24h magnesium. Vitals within normal limits, she is now normotensive. She is afebrile and hemodynamically stable with no evidence of infection. Denied signs or symptoms of pre-eclampsia at this time. PLAN: 1. Discharge to home likely tomorrow. 2. Tylenol and Motrin for pain. 3. Encourage breast feeding and ambulation. 4. Depo provera ordered for contraception. 5. Routine PP visit in 72h, 7d, and 6 weeks in clinic. 6. Discussed return precautions at length and activity limitations (pelvic r est). 7. Discussed signs and symptoms of worsening pre-eclampsia. VS, I&O, 24H, Fishbone Vital Signs/I&O Vital Signs Date Time Temp Pulse Resp B/P (MAP) Pulse Ox O2 Delivery O2 Flow Rate FiO2 05/13/21 03:00 98.5 57 18 123/61 (81) 99 Room Air I&O- Last 24 Hours up to 6 AM 05/13/21 05:59 Intake Total 500 ml Output Total 1600 ml Balance -1100 ml Laboratory Data 24H LABS Laboratory Tests 2 05/12/21 14:31: Nucleated Red Blood Cells % (auto) 0.0 CBC/BMP Laboratory Tests 05/12/21 14:31 FRANCISCA COTTON DO May 13, 2021 06:32
--- NOTE | 2021-05-13 06:34 | OBDS ---
[facility] Obstetrical Discharge Sum. A/P, Post Course List any complications Ms. Lawton is a 31yo after a vaginal delivery complicated by pre-eclampsia with severe features. She completed 24h of magnesium. She has been ambulating, voiding spontaneously without issue and tolerating regular diet. Breast feeding without issue. Reports lochia is less than a normal period. Patient is ambulating well. Reports some cramping with . Denies any pain. Voiding and passing flatus without difficulty. Vitals within normal limits, she is now normotensive. She is afebrile and hemodynamically stable with no evidence of infection. Denied signs or symptoms of pre-eclampsia at this time. APC 1. varicella non-immune 2. pre-eclampsia with severe features, normal tox labs PLAN: 1. Discharge to home likely tomorrow. 2. Tylenol and Motrin for pain. 3. Encourage breast feeding and ambulation. 4. Depo provera ordered for contraception. 5. Routine PP visit in 72h, 7d, and 6 weeks in clinic. 6. Discussed return precautions at length and activity limitations (pelvic rest). 7. Discussed signs and symptoms of worsening pre-eclampsia. Final diagnosis: vaginal delivery, pre-eclampsia with severe features FRANCISCA COTTON DO May 13, 2021 06:34
[2021-05-13] MEDS ORDERED: medroxyPROGESTERone ACET IM SUSP 150 MG/ML VIAL (J1050) IM ONE (09:00)
[2021-05-13 10:00] VITALS: BP 125/71
[2021-05-13] MEDS: PRENATAL VITAMINS CHEWABLE TABLET PO SCH (10:11)
[2021-05-13] MEDS: DOCUSATE SODIUM 100MG CAPSULE PO PRN (10:11)
[2021-05-13 14:00] VITALS: BP 136/86
[2021-05-13 18:00] VITALS: BP 128/57
[2021-05-13] MEDS: IBUPROFEN 800 MG TAB PO PRN (21:02)
[2021-05-13 22:00] VITALS: BP 128/79
[2021-05-14 02:00] VITALS: BP 128/61
[2021-05-14 06:00] VITALS: BP 130/78
--- NOTE | 2021-05-14 07:34 | IPNPDOC ---
Progress Note Date of Service: May 14, 2021 Progress Note SUBJECT: Ms. Lawton is a 31yo PPD3 s/p c/b pre-eclampsia with severe features s/p 24h magnesium. She has been ambulating, voiding spontaneously without issue and tolerating regular diet. Breast feeding without issue. Reports lochia is less than a normal period. Patient is ambulating well. Reports some cramping with . Denies any pain. Voiding and passing flatus without difficulty. She denied n/v/d, cp, sob, reed, visual changes, abd pain, f/c, heavy vb, dc, urinary sx. APC 1. varicella non-immune 2. pre-eclampsia with severe features, normal tox labs OBJECTIVE: VITAL SIGNS: Within normal limits, afebrile. Alert and oriented times three. No increased WOB Heart rate: non-tachy Abdomen: Fundus firm at U-2. Soft, NTTP. LE negative calf tenderness bilaterally [Minimal] lochia per patient ASSESSMENT: Ms. Lawton is a 31yo PPD3 s/p c/b pre-eclampsia with severe features s/p 24h magnesium. Vitals within normal limits, she is now normotensive. She is afebrile and hemodynamically stable with no evidence of infection. Denied signs or symptoms of pre-eclampsia at this time. PLAN: 1. Discharge to home today 2. Tylenol and Motrin for pain. 3. Encourage breast feeding and ambulation. 4. Depo provera ordered for contraception. 5. Routine PP visit in 72h, 7d, and 6 weeks in clinic. 6. Discussed return precautions at length and activity limitations (pelvic rest). 7. Discussed signs and symptoms of worsening pre-eclampsia. VS, I&O, 24H, Fishbone Vital Signs/I&O Vital Signs Date Time Temp Pulse Resp B/P (MAP) Pulse Ox O2 Delivery O2 Flow Rate FiO2 05/14/21 06:00 97.4 76 16 130/78 (95) 97 Room Air SHARDA MULLEN DO May 14, 2021 07:17
[2021-05-14] MEDS ORDERED: PRENCHW PO (07:37)
[2021-05-14] MEDS ORDERED: ACET-683 PO (07:37)
[2021-05-14] MEDS ORDERED: DOCU100C16 PO (07:37)
[2021-05-14] MEDS ORDERED: IBUP80TA PO (07:37)
[2021-05-14] MEDS: PRENATAL VITAMINS CHEWABLE TABLET PO SCH (09:00)
[2021-05-14] MEDS ORDERED: medroxyPROGESTERone ACET IM SUSP 150 MG/ML VIAL (J1050) IM ONE (09:00)
[2021-05-14] MEDS ORDERED: INFLUENZA QUADRIVALENT PF VACCINE 0.5ML SYRINGE IM ONE (11:00)
[2021-05-15] MEDS ORDERED: INFLUENZA QUADRIVALENT PF VACCINE 0.5ML SYRINGE IM ONE (09:00)
== END 2021-05-14 12:00 | disposition home or self-care (01) | DRG 807 ==
LOC: M LDI 13:38 → M OBS 05-12 04:15
PROVIDERS: ADMIT Obstetrics & Gynecology; ATTEND Obstetrics & Gynecology
PROC: 3E0P7GC Introduction of Other Therapeutic Substance into Female Reproductive, Via Natural or Artificial Opening (ICD-10-PCS; 2021-05-09)
PROC: 10907ZC Drainage of Amniotic Fluid, Therapeutic from Products of Conception, Via Natural or Artificial Opening (ICD-10-PCS; 2021-05-10)
PROC: 10E0XZZ Delivery of Products of Conception, External Approach (ICD-10-PCS; principal; 2021-05-11)
PROC: 0HQ9XZZ Repair Perineum Skin, External Approach (ICD-10-PCS; 2021-05-11)
DX: O14.14 Severe pre-eclampsia complicating childbirth (principal); Z37.0 Single live birth; Z3A.36 36 weeks gestation of pregnancy; O99.824 Streptococcus B carrier state complicating childbirth; O62.2 Other uterine inertia; O70.0 First degree perineal laceration during delivery

== ENCOUNTER 2021-11-05 20:05 | Emergency (ER) | payer OTHER ==
[~2021-11-05] VITALS: Ht 162.6 cm; Wt 77.3 kg
[~2021-11-05 20:05] MED LIST changes: +ACET-683 PO; +DOCU100C16 PO; +IBUP80TA PO; +PRENCHW PO
[2021-11-05 20:06] VITALS: BP 121/81
== END 2021-11-05 20:56 | disposition left against medical advice (07) ==
LOC: M ED 20:05
DX: Z53.21 Procedure and treatment not carried out due to patient leaving prior to being seen by health care provider (principal)

== ENCOUNTER → 2022-02-17 | Outpatient (CLI) | payer OTHER ==
[~2022-02-17] MED LIST changes: +E-Z-GAS II EFFERVESCENT PACKET (SODIUM BICARB./CITRIC ACID/SIMETHICONE) As Ordered ONE; +E-Z-HD 98% w/w 340GM SUSP BTL As Ordered ONE; +E-Z-PAQUE 96% w/w SUSP 176GM BTL As Ordered ONE; +ISOVUE-300 61% 50ML VIAL As Ordered ONE; +LIDOCAINE 1% MDV 20ML VIAL As Ordered ONE
== END ==
LOC: M RADPRO 08:46
PROVIDERS: ATTEND Plastic Surgery Surgery of the Hand
DX: R93.7 Abnormal findings on diagnostic imaging of other parts of musculoskeletal system (principal); M25.531 Pain in right wrist; G89.29 Other chronic pain
CPT/HCPCS: 25246; 73201; 77002; Q9967